=== PATIENT | female | born 1970 | race Caucasian/White ===

== ENCOUNTER 2021-07-08 09:51 | Emergency (ER) | payer OTHER ==
[2021-07-08] MEDS ORDERED: Dexamethasone 4 mg/ml Vial ONE (10:49)
[2021-07-08 15:24] LABS: SARS-CoV-2 PCR by NAA DETECTED (NotDetected)
== END 2021-07-08 11:14 | disposition home or self-care (01) ==
LOC: ERS 09:51
DX: U07.1 COVID-19 (principal)
CPT/HCPCS: 99283; J1100; U0003; U0005

== ENCOUNTER 2021-12-10 09:47 | Outpatient (CLI) | payer OTHER | END 2021-12-10 09:48 | disposition home or self-care (01) | LOC: BICMAMMO 09:47 | PROVIDERS: ATTEND Nurse Practitioner Family | DX: Z12.31 Encounter for screening mammogram for malignant neoplasm of breast (principal); Z91.89 Other specified personal risk factors, not elsewhere classified; Z98.82 Breast implant status; Z80.3 Family history of malignant neoplasm of breast | CPT/HCPCS: 77063; 77067 ==

== ENCOUNTER 2021-12-19 11:08 | Outpatient (CLI) | payer OTHER | END 2021-12-19 11:09 | disposition home or self-care (01) | LOC: TBSIIMAG 11:08 | PROVIDERS: ATTEND Physician Assistant | DX: M51.36 Other intervertebral disc degeneration, lumbar region (principal); Z98.890 Other specified postprocedural states | CPT/HCPCS: 72072; 72100 ==

== ENCOUNTER 2022-05-23 07:32 | Outpatient (CLI) | payer OTHER | END 2022-05-23 07:33 | disposition home or self-care (01) | LOC: RAD-FRANK 07:32 | PROVIDERS: ATTEND Nurse Practitioner Family | DX: M25.532 Pain in left wrist (principal) ==

== ENCOUNTER 2025-05-31 10:55 | Outpatient (CLI) | payer OTHER | END 2025-05-31 10:56 | disposition home or self-care (01) | LOC: BICMAMMO 10:55 | PROVIDERS: ATTEND Nurse Practitioner Family | DX: Z12.31 Encounter for screening mammogram for malignant neoplasm of breast (principal); R92.333 Mammographic heterogeneous density, bilateral breasts; Z80.3 Family history of malignant neoplasm of breast; Z98.82 Breast implant status | CPT/HCPCS: 77063; 77067 ==